=== PATIENT | female | born 1990 | race Caucasian/White ===

== ENCOUNTER 2022-04-20 14:50 | Outpatient (CLI) | payer BC ==
[2022-04-20 15:03] LABS: BASOPHILS % (AUTO) 0.3 %; EOSINOPHILS % (AUTO) 0.7 %; HCT - HEMATOCRIT 42.2 % (37.0-47.0); HGB - HEMOGLOBIN 13.7 g/dL (12.0-16.0); LYMPHOCYTES % (AUTO) 34.5 %; MEAN CORPUSCULAR HEMOGLOBIN 30.1 pg (27.0-31.0); MEAN CORPUSCULAR HGB CONC 32.5 g/dL (32.0-36.0); MEAN CORPUSCULAR VOLUME 92.7 fL (81.0-99.0); MEAN PLATELET VOLUME 11.1 fL (7.9-10.8); MONOCYTES # (AUTO) 0.4 10^3/uL (0.0-1.0); MONOCYTES % (AUTO) 6.8 %; NEUTROPHILS # (AUTO) 3.4 10^3/uL (1.5-6.6); NEUTROPHILS % (AUTO) 57.5 %; PLT - PLATELET COUNT 280 10^3/uL (130-450); RED BLOOD COUNT 4.55 10^6/uL (4.20-5.40); RED CELL DISTRIBUTION WIDTH 12.1 % (12.0-15.0); WHITE BLOOD COUNT 5.9 x10^3/uL (4.8-10.8)
== END 2022-04-20 14:51 | disposition home or self-care (01) ==
LOC: LAB 14:50
PROVIDERS: ATTEND Nurse Practitioner
DX: Z86.2 Personal history of diseases of the blood and blood-forming organs and certain disorders involving the immune mechanism (principal)
CPT/HCPCS: 36415; 82728; 85025

== ENCOUNTER 2022-08-21 14:11 | Outpatient (CLI) | payer BC ==
[2022-08-21 19:54] LABS: BASOPHILS % (AUTO) 0.3 %; EOSINOPHILS # (AUTO) 0.1 10^3/uL (0.0-0.7); EOSINOPHILS % (AUTO) 1.1 %; HCT - HEMATOCRIT 40.1 % (37.0-47.0); HGB - HEMOGLOBIN 12.8 g/dL (12.0-16.0); LYMPHOCYTES # (AUTO) 2.1 10^3/uL (1.5-3.5); LYMPHOCYTES % (AUTO) 31.7 %; MEAN CORPUSCULAR HEMOGLOBIN 30.3 pg (27.0-31.0); MEAN CORPUSCULAR HGB CONC 31.9 g/dL (32.0-36.0); MEAN PLATELET VOLUME 11.9 fL (7.9-10.8); MONOCYTES # (AUTO) 0.4 10^3/uL (0.0-1.0); MONOCYTES % (AUTO) 5.9 %; NEUTROPHILS % (AUTO) 60.7 %; PLT - PLATELET COUNT 255 10^3/uL (130-450); RED BLOOD COUNT 4.22 10^6/uL (4.20-5.40); RED CELL DISTRIBUTION WIDTH 13.1 % (12.0-15.0); WHITE BLOOD COUNT 6.6 x10^3/uL (4.8-10.8)
[2022-08-23 05:11] LABS: HCV AB Non Reactive (Non Reactive); HIV SCREEN 4TH GENERATION Non Reactive (Non Reactive)
[2022-08-23 06:10] LABS: HBsAG SCREEN Negative (Negative)
[2022-08-23 07:10] LABS: RPR Non Reactive (Non Reactive)
[2022-08-23 11:11] LABS: VARICELLA-ZOSTER AB IGG 737 index (Immune >165)
== END 2022-08-21 14:12 | disposition home or self-care (01) ==
LOC: LAB.S 14:11
PROVIDERS: ATTEND Nurse Practitioner Obstetrics & Gynecology
DX: Z36.89 Encounter for other specified antenatal screening (principal)
CPT/HCPCS: 36415; 85025; 86592; 86762; 86787; 86803; 86850; 86900; 86901; 87340; 87389

== ENCOUNTER 2022-08-25 08:31 | Emergency (ER) | payer BC ==
[2022-08-25 08:37] VITALS: BP 132/78
--- OUTSIDE RECORDS SUMMARY | 2022-08-25 08:46 | EXTERNAL MEDICAL SUMMARY RPT | Continuity of Care Document ---
:1990 Author Organization [facility] Address [address] [place] [address] Phone Care Team Providers Name Role Phone Unavailable Unavailable Unavailable Steven Flor Pa-C Unavailable Unavailable Allergies No information. Encounters No information. Functional Status No information. Immunizations No information. Medications date description facility 2022-08-25 00:00 metoclopramide hcl [facility] 2022-08-25 00:00 metoclopramide hcl [facility] 2022-08-25 00:00 metoclopramide hcl [facility] 2022-08-25 00:00 vit no.[id number] [facility] 2022-08-25 00:00 metoclopramide hcl [facility] 2022-08-25 00:00 vit no.[id number] [facility] 2022-08-25 00:00 vit no.[id number] [facility] Problems date description facility 2022-08-25 00:00 Pain in calf [facility] 2022-08-25 00:00 Tachycardia [facility] 2022-08-25 00:00 Pain in limb [facility] 2022-08-25 00:00 [facility] 2022-08-25 00:00 Pain in left lower leg [facility] 2022-08-25 00:00 Tachycardia, unspecified Walk-In [facility] 2022-08-25 00:00 state, incidental [facility] Procedures date description facility 2022-08-25 00:00 Visit Code Hold [facility] Results/Labs test date author facility value unit interpret ation Result panel 1 (unknown) (no date) (unknown) Walk-In (no value) (units (unk nown) Clinic [facility] Result panel 2 (unknown) (no date) (unknown) Walk[facility] (no value) (units ([facility] nown) Clinic [facility] Result panel 3 (unknown) (no date) (unknown) Walk[facility] (no value) (units ([facility] nown) Clinic [facility] Result panel 4 (unknown) (no date) (unknown) Walk-In (no value) (units ([facility] nown) Clinic [facility] Result panel 5 (unknown) (no date) (unknown) Walk[facility] (no value) (units ([facility] nown) Clinic [facility] Result panel 6 (unknown) (no date) (unknown) Walk[facility] (no value) (units ([facility] nown) Clinic [facility] Result panel 7 (unknown) (no date) (unknown) Walk[facility] (no value) (units ([facility] nown) [facility] Result panel 8 (unknown) (no date) (unknown) Walk[facility] (no value) (units ([facility] nown) Clinic [facility] Result panel 9 (unknown) (no date) (unknown) Walk[facility] (no value) (units ([facility] nown) [facility] Result panel 10 (unknown) (no date) (unknown) Walk[facility] (no value) (units ([facility] nown) Clinic [facility] Result panel 11 (unknown) (no date) (unknown) Walk[facility] (no value) (units ([facility] nown) Clinic [facility] Result panel 12 (unknown) (no date) (unknown) Walk-[facility] (no value) (units ([facility] nown) Clinic [facility] Result panel 13 (unknown) (no date) (unknown) Walk-[facility] (no value) (units ([facility] nown) Clinic [facility] Result panel 14 (unknown) (no date) (unknown) Walk-[facility] (no value) (units ([facility] nown) Clinic [facility] Result panel 15 (unknown) (no date) (unknown) Walk-In (no value) (units ([facility] nown) Clinic [facility] Result panel 16 (unknown) (no date) (unknown) Walk-[facility] (no value) (units ([facility] nown) Clinic [facility] Result panel 17 (unknown) (no date) (unknown) Walk-In (no value) (units ([facility] nown) Clinic [facility] Result panel 18 (unknown) (no date) (unknown) Walk-In (no value) (units ([facility] nown) Clinic [facility] Result panel 19 (unknown) (no date) (unknown) Walk-In (no value) (units ([facility] nown) Clinic [facility] Result panel 20 (unknown) (no date) (unknown) Walk-In (no value) (units ([facility] nown) Clinic [facility] Result panel 21 (unknown) (no date) (unknown) Walk-In (no value) (units ([facility] nown) Clinic [facility] Result panel 22 (unknown) (no date) (unknown) Walk-In (no value) (units ([facility] nown) Clinic [facility] Result panel 23 (unknown) (no date) (unknown) Walk-In (no value) (units (unk nown) Clinic [facility] unknown[facility] Social History date description facility 2022-08-25 00:00 Never smoker [facility] Vital Signs date measurement value units 2022-08-25 00:00 BMI 19.91 kg/m2 2022-08-25 00:00 BP_diastolic 74 mmHg 2022-08-25 00:00 BP_systolic 136 mmHg 2022-08-25 00:00 heart_rate 110 /min 2022-08-25 00:00 height_metric 160.02 cm 2022-08-25 00:00 height_standard 63 in 2022-08-25 00:00 respiration_rate 16 /min 2022-08-25 00:00 temperature_metric 36.11 C 2022-08-25 00:00 temperature_standard 97 F 2022-08-25 00:00 weight_metric 50.8 kg 2022-08-25 00:00 weight_standard 112 lb
--- NOTE | 2022-08-25 09:27 | ED Physician Documentation ---
PD HPI LOWER EXT INJURY - Stated complaint Stated Complaint: PREG/L CALF PX - Chief complaint Chief Complaint: Ext Problem - History obtained from History obtained from: Patient - Additional information Additional information: Patient is a 31-year-old female with no significant prior medical history presenting for evaluation of left calf pain that is been present since Sunday. She recently returned from [place] this past weekend. She is approximately 12 weeks . She denies any known injury. She denies history of PE or DVT but her sister has a history of a PE that appeared to have been provoked by oral contraceptives and her grandmother also had 1.Patient does not smoke. She denies recent surgeries. She was seen at the walk-in clinic and directed to the emergency department for evaluation. She denies chest pain or difficulty breathing. She is seeing one of the nurse midwives for her care and denies any complications in this . Review of Systems Constitutional: denies: Fever Cardiac: denies: Chest pain / pressure Respiratory: denies: Dyspnea GI: denies: Abdominal Pain : denies: Dysuria, Vaginal bleeding Musculoskeletal: reports: Extremity pain Neurologic: denies: Headache PD PAST MEDICAL HISTORY - Allergies Allergies/Adverse Reactions: Allergies Allergy/AdvReac Type Severity Reaction Status Date / Time amoxicillin Allergy Hives Verified 08/25/22 08:37 PD ED PE NORMAL - General General: Alert and oriented X 3, No acute distress, Well developed/nourished - HEENT HEENT: Atraumatic - Neck Neck: Supple, no meningeal sign - Cardiac Cardiac: RRR - Respiratory Respiratory: No respiratory distress, Clear bilaterally - Abdomen Abdomen: Soft, Non tender, Non distended - Derm Derm: Warm and dry - Extremities Extremities: No deformity, No tenderness to palpate, Normal ROM s pain, No edema, Other (Pedal pulses intact). No: No calf tenderness / cord (Mild tenderness to left calf) Results - Vitals Vitals: Vital Signs - 24 hr 08/25/22 08:34 Temperature 36.8 C Heart Rate 105 H Respiratory 20 Rate Blood Pressure 132/78 H O2 Saturation 98 Oxygen O2 Source Room air PD Medical Decision Making - ED course Complexity details: reviewed results, re-evaluated patient ED course: Patient is a 31-year-old presenting for evaluation of left calf pain in the setting of first trimester and recent overseas plane trip.Physical exam is unrevealing with no signs of swelling Or rash. She has full range of motion at all joints of the affected extremity and compartments are soft. She is neurovascularly intact. An ultrasound is negative for DVT.Could be related to muscle strain. Discussed continued supportive care.Patient denies symptoms elsewhere. She is not and heart tones Rechecked and normal. Patient denies chest pain or shortness of air or abdominal pain. Patient is counseled to continue with supportive care and is also advised on concerning symptoms to return for. Departure - Departure Disposition: 01 Home, Self Care Clinical Impression: Pain of left calf Condition: Stable Instructions: ED RICE Comments: Your ultrasound does not show a blood clot in your left leg.Your pain could be related to a muscle strain and I would recommend continuing with an anti- inflammatory such as acetaminophen, rest, ice Over the weekend. If you are pain worsens or you notice any new symptoms such as redness or swelling or difficulty breathing please return to the emergency department. Discharge Date/Time: 08/25/22 09:49
--- NOTE | 2022-08-25 09:30 | Ultrasound Report ---
PROCEDURE: Duplex Ext Veins Left INDICATIONS: L calf pain; ; recent travel TECHNIQUE: Real-time imaging, as well as color and pulse Doppler interrogation, were performed of the lower extr emity deep veins from the inguinal ligament to the popliteal fossa. COMPARISON: None. FINDINGS: The deep veins are normally compressible, and free of intraluminal thrombus. Color and pu lse Doppler demonstrate normal phasic intraluminal flow. There is normal augmentation response to di stal compression maneuver. IMPRESSION: Negative examination for DVT in the left leg. Reviewed by: Luis Reyes MD on 08/25/2022 9:29 AM PDT Approved by: Luis Reyes MD on 08/25/2022 9:29 AM PDT Station ID: [id number]
== END 2022-08-25 09:49 | disposition home or self-care (01) ==
LOC: ED 08:31
DX: O99.891 Other specified diseases and conditions complicating pregnancy (principal); M79.662 Pain in left lower leg
CPT/HCPCS: 99283; 99284

== ENCOUNTER 2022-10-23 15:14 | Outpatient (CLI) | payer BC ==
--- NOTE | 2022-10-23 17:09 | Ultrasound Report ---
PROCEDURE: OB Detailed Eval INDICATIONS: SUPERVISION OF OUTSIDE/PRIOR DATING DATA: Last menstrual period (LMP): 06/05/2022. LMP-based estimated date of delivery (CELIO): 03/12/2023. First dating scan (date and location): 07/28/2022. Estimated date of delivery (CELIO) from first dating scan: 03/13/2023. The below data below was generated using the sonographic CELIO of 03/13/2023 TECHNIQUE: Real-time scanning was performed of the fetus, with image documentation and biometric measurements. Endovaginal scanning: Not performed COMPARISON: None. FINDINGS: General: A single living intrauterine gestation is present. Presentation: Variable Placenta: Placental position is posterior, without previa. Amniotic fluid index: 14.0 cm, largest pocket is 5.6 cm, normal for gestational age. heart rate: 160 beats per minute. Maternal cervical canal: Closed and 4.4 cm long; normal length is 2.5 cm or more. biometrics: Biparietal diameter: 5.0 cm, 21 weeks 1 day Head circumference: 18.8 cm, 21 weeks 1 day Abdominal circumference: 15.9 cm, 21 weeks 0 days Femur length: 3.1 cm, 19 weeks 4 days Estimated gestational age from initial scan: 19 weeks 6 days. Composite gestational age from present scan: 20 weeks 5 days Estimated weight and percentile: 355 g, 79th percentile Measurement variability in biometric dating: +/- 10 days from 12-20 weeks gestation, +/- 2 weeks from 20-30 weeks gestation, +/- 3 weeks at 30 weeks gestation or later. Anatomic survey: Neuro: Ventricles are normal at less than 10 mm. Cisterna magna is normal at 3-11 mm. Cerebellum i s normal in size and morphology. Nuchal skin fold: Normal at less than 6 mm between 14 and 20 weeks gestational age. Face: Nose and lips, facial profile are normal. Spine: No evidence for spina bifida. Heart: 4-chambered heart is present. Ventricular outflow tracts are suboptimally seen secondary to f etal lie. Diaphragm: Diaphragm is intact. Stomach: Left-sided stomach is present. Kidneys: No hydronephrosis. Normal is less than 5 mm in 2nd trimester, less than 7 mm in 3rd trimester. Cord: 3 vessel cord has orthotopic insertion. Bladder: Normal in size. Extremities: All 4 extremities are visualized. IMPRESSION: 1. Single living intrauterine with symmetric and appropriate growth. 2. Suboptimal visualization of cardiac ventricular outflow tracts. Otherwise normal anatomy. Fo llow-up in one week is recommended for completion of anatomic survey. 3. Closed cervix and normal amniotic fluid volume. Reviewed by: Riddhi Rdz MD on 10/23/2022 5:07 PM PDT Approved by: Riddhi Rdz MD on 10/23/2022 5:07 PM PDT Station ID: [id number]
== END 2022-10-23 15:15 | disposition home or self-care (01) ==
LOC: DI 15:14
PROVIDERS: ATTEND Nurse Practitioner Obstetrics & Gynecology
DX: Z34.02 Encounter for supervision of normal first pregnancy, second trimester (principal); Z36.89 Encounter for other specified antenatal screening

== ENCOUNTER 2022-11-15 14:01 | Outpatient (CLI) | payer BC ==
--- NOTE | 2022-11-15 16:32 | Ultrasound Report ---
PROCEDURE: OB F/U or Repeat INDICATIONS: SUPERVISION OF OUTSIDE/PRIOR DATING DATA: Last menstrual period (LMP): 06/05/2022. LMP-based estimated date of delivery (CELIO): 03/12/2023. First dating scan (date and location): 07/28/2022. Estimated date of delivery (CELIO) from first dating scan: 03/13/2023. The below data below was generated using the ultrasound CELIO of 03/13/2023 TECHNIQUE: Real-time scanning was performed of the fetus, with image documentation and biometric measurements. Endovaginal scanning: Not performed COMPARISON: None. FINDINGS: General: A single living intrauterine gestation is present. Presentation: Cephalic Placenta: Placental position is posterior, without previa. Amniotic fluid index: 13 cm, 29th percentile for gestational age. heart rate: Not obtained. Maternal cervical canal: 3.7 cm long; normal length is 2.5 cm or more. biometrics: Estimated gestational age from initial scan: 23 weeks 1 day Composite gestational age from present scan: Not applicable Estimated weight and percentile: Not applicable Measurement variability in biometric dating: +/- 10 days from 12-20 weeks gestation, +/- 2 weeks from 20-30 weeks gestation, +/- 3 weeks at 30 weeks gestation or more. Other: Normal sonographic appearance of the heart and outflow tracts. The kidneys and urinary bladder appear within normal limits. IMPRESSION: Single living intrauterine at 23 weeks 1 day, CELIO of 03/13/2023. Normal sonographic appearance of the heart and outflow tracts. Reviewed by: Ash Hanks on 11/15/2022 4:30 PM PDT Approved by: Ash Hanks on 11/15/2022 4:30 PM PDT Station ID: [id number]
== END 2022-11-15 14:02 | disposition home or self-care (01) ==
LOC: DI 14:01
PROVIDERS: ATTEND Nurse Practitioner Obstetrics & Gynecology
DX: Z34.02 Encounter for supervision of normal first pregnancy, second trimester (principal); Z36.89 Encounter for other specified antenatal screening

== ENCOUNTER 2022-12-04 07:58 | Outpatient (CLI) | payer BC ==
[2022-12-04 14:39] LABS: BASOPHILS % (AUTO) 0.3 %; EOSINOPHILS % (AUTO) 0.4 %; HGB - HEMOGLOBIN 10.9 g/dL (12.0-16.0); LYMPHOCYTES # (AUTO) 1.5 10^3/uL (1.5-3.5); LYMPHOCYTES % (AUTO) 22.4 %; MEAN CORPUSCULAR HEMOGLOBIN 32.6 pg (27.0-31.0); MEAN CORPUSCULAR VOLUME 98.8 fL (81.0-99.0); MEAN PLATELET VOLUME 11.7 fL (7.9-10.8); MONOCYTES # (AUTO) 0.4 10^3/uL (0.0-1.0); MONOCYTES % (AUTO) 6.3 %; NEUTROPHILS # (AUTO) 4.7 10^3/uL (1.5-6.6); NEUTROPHILS % (AUTO) 70.2 %; PLT - PLATELET COUNT 227 10^3/uL (130-450); RED BLOOD COUNT 3.34 10^6/uL (4.20-5.40); RED CELL DISTRIBUTION WIDTH 13.3 % (12.0-15.0); WHITE BLOOD COUNT 6.7 x10^3/uL (4.8-10.8)
== END 2022-12-04 07:59 | disposition home or self-care (01) ==
LOC: LAB.S 07:58
PROVIDERS: ATTEND Nurse Practitioner Obstetrics & Gynecology
DX: Z36.9 Encounter for antenatal screening, unspecified (principal); Z67.91 Unspecified blood type, Rh negative
CPT/HCPCS: 36415; 82950; 85025; 85027; 86850

== ENCOUNTER 2023-03-05 00:44 | Inpatient (IN) | payer BC ==
[2023-03-05 01:20] LABS: RUPTURE OF MEMBRANES PLUS POSITIVE (NEGATIVE)
[2023-03-05] MEDS ORDERED: hydrALAZINE INJ 20 MG/ML VIAL IVP PRN ×2 (01:21)
[2023-03-05] MEDS ORDERED: miSOPROStoL 200 MCG TABLET BC PRN (01:21)
[2023-03-05] MEDS ORDERED: LACTATED RINGERS 1,000 ML IV PRN (01:21)
[2023-03-05] MEDS ORDERED: LABETALOL 20 MG/4 ML SYRINGE IVP PRN ×3 (01:21)
[2023-03-05] MEDS ORDERED: OXYTOCIN 10 UNIT/ML VIAL IM PRN (01:21)
[2023-03-05] MEDS ORDERED: TRANEXAMIC ACID IN NACL 1,000 MG/100 ML BAG IV PRN (01:21)
[2023-03-05] MEDS ORDERED: OXYTOCIN/SODIUM CHLORIDE 500 ML IV PRN (01:21)
[2023-03-05] MEDS ORDERED: miSOPROStoL 200 MCG TABLET PR PRN (01:21)
[2023-03-05] MEDS ORDERED: METHYLERGONOVINE 0.2 MG/ML VIAL IM PRN (01:21)
[2023-03-05] MEDS ORDERED: CARBOPROST TROMETHAMINE 250 MCG/ML AMP IM PRN (01:21)
[2023-03-05] MEDS ORDERED: TERBUTALINE 1 MG/ML VIAL SUBQ PRN (01:21)
[2023-03-05] MEDS ORDERED: ONDANSETRON 4 MG/2 ML VIAL IVP PRN (01:21)
[2023-03-05] MEDS ORDERED: SODIUM CHLORIDE FLUSH 0.9% 10 ML SYRINGE IVP PRN (01:21)
[2023-03-05] MEDS ORDERED: lidocaine 1% 20 ML MDV ID PRN (01:21)
[2023-03-05] MEDS ORDERED: NIFEdipine 10 MG CAPSULE PO PRN (01:21)
[2023-03-05] MEDS ORDERED: fentaNYL 100 MCG/2 ML VIAL IVP PRN (01:21)
[2023-03-05 01:38] LABS: BASOPHILS % (AUTO) 0.2 %; EOSINOPHILS % (AUTO) 0.3 %; HCT - HEMATOCRIT 35.8 % (37.0-47.0); LYMPHOCYTES # (AUTO) 2.3 10^3/uL (1.5-3.5); LYMPHOCYTES % (AUTO) 26.7 %; MEAN CORPUSCULAR HEMOGLOBIN 32.4 pg (27.0-31.0); MEAN CORPUSCULAR HGB CONC 33.5 g/dL (32.0-36.0); MEAN CORPUSCULAR VOLUME 96.8 fL (81.0-99.0); MEAN PLATELET VOLUME 12.5 fL (7.9-10.8); MONOCYTES # (AUTO) 0.6 10^3/uL (0.0-1.0); MONOCYTES % (AUTO) 6.7 %; NEUTROPHILS # (AUTO) 5.7 10^3/uL (1.5-6.6); NEUTROPHILS % (AUTO) 65.6 %; PLT - PLATELET COUNT 148 10^3/uL (130-450); RED CELL DISTRIBUTION WIDTH 13.5 % (12.0-15.0); WHITE BLOOD COUNT 8.7 x10^3/uL (4.8-10.8)
[2023-03-05] MEDS ORDERED: LACTATED RINGERS 1,000 ML IV SCH (02:00)
--- OUTSIDE RECORDS SUMMARY | 2023-03-05 03:26 | EXTERNAL MEDICAL SUMMARY RPT | Continuity of Care Document ---
Author Name Unknown Address [address] [place] [address] Phone Organization [facility] Address [address] [place] [address] Phone Care Team Providers Care Customer Operations Intern Name Role Phone Unavailable Unavailable Unavailable Brandon, Provider Unavailable Unavailable Medications date description facility 2022-12-07 00:00 metoclopramide hcl [facility] [place] 2023-03-05 00:00 metoclopramide hcl [facility] [place] 2022-12-07 00:00 metoclopramide hcl [facility] [place] 2023-03-05 00:00 metoclopramide hcl [facility] [place] 2022-12-07 00:00 metoclopramide hcl [facility] [place] 2023-03-05 00:00 metoclopramide hcl [facility] [place] 2022-12-07 00:00 vit no.[id number] [facility] [place] 2023-03-05 00:00 vit no.[id number] [facility] [place] 2022-12-07 00:00 metoclopramide hcl [facility] [place] 2023-03-05 00:00 metoclopramide hcl [facility] [place] 2022-12-07 00:00 vit no.[id number] [facility] [place] 2023-03-05 00:00 vit no.[id number] [facility] [place] 2022-12-07 00:00 vit no.[id number] [facility] [place] 2023-03-05 00:00 vit no.[id number] [facility] Results/Labs test date facility value unit notes Social History date description facility
[2023-03-05] MEDS ORDERED: WITCH HAZEL/GLYCERIN 1 PAD TOP PRN (04:18)
[2023-03-05] MEDS ORDERED: HYDROCORTISONE 1% CREAM 28 GM TUBE PR PRN (04:18)
--- NOTE | 2023-03-05 04:37 | DELIVERY NOTE ---
Delivery Note - Labor Labor: positive: Spontaneous - Delivery Method Delivery Method: positive: Spontaneous vaginal delivery - Presentation Presentation: positive: Vertex, VIDYA - right occiput anterior - Nuchal Cord Nuchal Cord: positive: None - Amniotic Fluid Description Amniotic Fluid Description: positive: Clear - Episiotomy Type Episiotomy Type: positive: None - Laceration Laceration: positive: 1st degree, Perineal, Periurethral - Suture Suture Type: positive: Vicryl Suture Size: positive: 3-0, 4-0 - Delivery Outcome Delivery Outcome: positive: Livebirth - Dexter: positive: Placed in direct skin contact with mother, Bulb syringe, Stimulated, Warmed, [place] used Dexter sex: positive: Male - Cord Cord: positive: 3 vessels - Placenta Placenta: positive: Intact, Spontaneous - Estimated Blood Loss Estimated Blood Loss (in cc): 250 - Post Delivery Events Post Delivery Events: positive: No post delivery events - Delivery Comments (Free Text/Narrative) Delivery Comments (Free Text/Narrative): Labor: This 32yo @ 39.0wks gestation by LMP c/w 7.3wk U/S presents to [facility] with c/o contractions and vaginal leakage of clear fluid. Upon arrival she was noted to be 4/100/0 and vertex. ROM+ returned positive with suspected SROM at approximately 2130 and clear fluid. FHR pattern demonstrated category I pattern throughout labor. Pt progressed to c/c/+1 at 0254. : Normal SVB of viable male on 03/05/2023 @ 0323. No nuchal cord. The was placed on maternal abdomen, stimulated, dried, and placed skin to skin. Apgars were 8/9 at 1 and 5 minutes respectively. IV dislodged during second stage and IM pitocin was administered secondarily. The umbilical cord was allowed to stop pulsating at which time it was doubly clamped by CNM and cut by FOB. Cord blood was obtained. 3VC. Fundal massage and gentle cord traction applied for active management of the third stage. Placenta delivered spontaneously and intact at 0331. EBL 250mL. Fourth stage: Uterine fundus firm and there is no excessive bleeding. The perineum, vagina, and cervix were inspected and found to have a 1st degree perineal laceration which was repaired using a 3-[address]-1 needle, in standard fashion and under sterile conditions. In addition there was found to be a minor 1st degree left periurethral laceration which was repaired using a 4-0 vicryl on an SH needle in standard fashion and under sterile conditions. Vaginal examination following repair was done. Tissues well approximated. initiated. Family bonding well. Both mother and baby were left in stable condition.
--- NOTE | 2023-03-05 04:43 | HISTORY & PHYSICAL EXAMINATION ---
Admit History - Visit Reason Visit Reason: Contractions, Membranes rupture - : 2 Parity: 1 Premature: 0 Ectopic: 0 : 0 Care: positive: [facility] Risk/History: positive: None Complications This : positive: None Smoking Status: Never smoker - Mother's Labs Mother's Blood Type: positive: O Mother's RH: positive: Negative GBS: positive: Group B Step Negative Rubella Status: positive: Immune - HPI Current EDU 03/12/23 Gestation 39 Weeks and 0 Days 2 Vital Signs Temperature 37.0 C 03/05/23 00:52 Heart Rate 119 H 03/05/23 00:52 Respiratory Rate 20 03/05/23 00:52 Temperature 36.7 C 03/05/23 01:29 Heart Rate 113 H 03/05/23 01:29 Respiratory Rate 18 03/05/23 01:29 Blood Pressure 127/74 03/05/23 01:29 O2 Saturation If not protocol: Oxygen Flow, liters/minute - NST Procedure FHR baseline 130s, moderate variability, + accels, no decels Contractions palpate strong every 2-4 minutes with soft resting tone Meds/Allgy - Allergies Allergies/Adverse Reactions: Allergies Allergy/AdvReac Type Severity Reaction Status Date / Time amoxicillin Allergy Hives Verified 08/25/22 08:37 Review of Systems - Constitutional Constitutional: denies: Fatigue, Fever, Chills, Malaise - Eyes Eyes: denies: Blurred vision, Spots in vision, Dipolpia - Cardiovascular Cariovascular: denies: Irregular heart rate, Palpitations, Chest pain, Edema - Respiratory Respiratory: denies: Cough, SOB at rest - Gastrointestinal Gastrointestinal: denies: Constipation, Diarrhea, Nausea, Vomiting - Genitourinary Genitourinary: denies: Dysuria - Integumentary Integumentary: denies: Rash, Pruritis - Neurological Neurological: denies: Headache - Psychiatric Psychiatric: denies: Depression, Anxiety - Hematologic/Lymphatic Hematologic/Lymphatic: denies: Anemia Physical - Abdominal Exam Vital Signs: Temp Pulse Resp BP Pulse Ox O2 Flow Rate 36.7 C 113 H 18 127/74 03/05/23 01:29 03/05/23 01:29 03/05/23 01:29 03/05/23 01:29 Contraction Frequency (min/apart): 2-4 Contraction Intensity: positive: Strong Uterine Resting Tone: positive: Soft - Monitoring Heart Rate Baseline: 130 - Presentation Presentation: positive: Vertex - Vaginal Exam Membranes: positive: Membranes ruptured Dilation (in cm): 4 Effacement (%): 100 Station: positive: 0 Cervical Position: positive: Midposition - Speculum Exam Speculum Exam Performed: positive: No Findings: positive: Other Plan for Labor - Plan For Labor I expect patient to be DC'd or transferred within 96 hours.: Yes Plan for Labor: HPI: Anjali is a 32yo @ 39.0wks gestation by LMP cw/ 7.3wk U/s who presents to [facility] with c/o contractions that have increased in frequency and intensity since approximately 2029 this evening. She reports SROM on 03/04/2023 at 2130 which was noted to be a moderate amount of clear fluid. Upon arrival her cervix was noted to be 4/100/0 and vertex with ROM+ returning positive and continued leakage of clear fluid. She was admitted to [facility] for expectant management. She has been a patient of [facility] for the duration of her which has remained uncomplicated with the exception of mild anemia which was treated with PO iron supplement twice daily. She has received consistent and adequate care. She is supported by her Andrey and her ariel Aguilar. Dating criteria: LMP: 06/05/2022 Initial U/S @ 7.3wks c/w LMP dating Serial exams- agree maintenance planner History: Term NSVB x 1. SAB x 0. Last pap 12/2020 WNL, HPV neg. Denies history of gonorrhea, chlamydia, genital herpes, oral herpes or any other STI. Sexual partner does NOT have HSV (oral or genital). Medical Hx: migraines, anemia Surgical Hx: none Social Hx:Monogamous with male partner. Stopped drinking alcohol due to . Denies current use of tobacco, marijuana or other recreational drugs. Reports that she is safe in current relationship. Family Hx: Trisomy 18-sister's baby. Denies other known family hx of chromosomal or genetic abnormalities. Thyroid disorder - father; HTN- father; Diabetes - father, PGM Allergies: Amoxicillin Medications: PNV, FeSO4 PO bid course: O negative, antibody negative Rubella immune, varicella immune RPR non-reactive, HIV non-reactive Hep C neg, Hep B neg Initial U/S @ 7.3wks c/w LMP dating Genetic screening - negative FAS WNL with the exception of suboptimal visualization of cardiac ventricular outflow tracts. Posterior placenta, no previa. CHYNA WNL. 3VC. Size c/w dating (EFW 79%tile). Completion FAS WNL. Glucola 96 Antibody negative @ 28wks Rhogam administered 12/19/2022 Tdap 01/24/2023 COVID-19 x 4 (most recent booster @ 36wks gestation) Influenza 3rd trimester GBS negative Physical exam: Normocephalic, atraumatic Heart RRR w/o M/G/R Lungs CTAB Abdomen gravid, soft, nontender EFW 3300g FHR baseline 130s, moderate variability, + accels, no decels Contractions palpate strong every 2-4 minutes with soft resting tone SVE 4/100/0 and vertex. ROM+ positive Bilateral LE's no edema Mood is good Assessment: 32yo @ 39.0wks gestation by LMP c/w 7.3wk U/S Active labor FHR Category I GBS neg Rh negative Plan: Admit to [facility] for expectant management. Continuous monitoring. Jacuzzi PRN. Nitrous oxide PRN. Epidural per maternal request. Anticipate .
--- NOTE | 2023-03-05 04:55 | PROCEDURE REPORT ---
- HPI Current EDU 03/12/23 Gestation 39 Weeks and 0 Days 2 Vital Signs Temperature 37.0 C 03/05/23 00:52 Heart Rate 119 H 03/05/23 00:52 Respiratory Rate 20 03/05/23 00:52 Temperature 36.7 C 03/05/23 01:29 Heart Rate 113 H 03/05/23 01:29 Respiratory Rate 18 03/05/23 01:29 Blood Pressure 127/74 03/05/23 01:29 O2 Saturation If not protocol: Oxygen Flow, liters/minute - NST Procedure FHR Baseline 130s, moderate variability, + accels, no decels Contractions palpate strong every 2-4 minutes with soft resting tone
[2023-03-05] MEDS: ACETAMINOPHEN 500 MG TABLET PO SCH ×3 (06:08→21:47)
[2023-03-05] MEDS: IBUPROFEN 800 MG TABLET PO SCH ×3 (06:09→17:59)
[2023-03-05] MEDS: DOCUSATE SODIUM 100 MG CAPSULE PO SCH ×2 (08:46→21:47)
[2023-03-05] MEDS ORDERED: RHO(D) IMMUNE GLOBULIN 300 MCG SYRINGE IM ONE (12:48)
[2023-03-06] MEDS: IBUPROFEN 800 MG TABLET PO SCH ×2 (00:01→05:57)
[2023-03-06] MEDS: ACETAMINOPHEN 500 MG TABLET PO SCH (05:57)
[2023-03-06] MEDS: DOCUSATE SODIUM 100 MG CAPSULE PO SCH (08:29)
--- NOTE | 2023-03-06 09:22 | Discharge Plan ---
Discharge Plan Problem Reviewed?: Yes Disposition: Home, Self Care Condition: Good Diet: Regular Activity Restrictions: No Restrictions Shower Restrictions: No Driving Restrictions: No Weight Bearing: Full Weight Instruction Topics: Vaginal After No Smoking: If you smoke, Please STOP! Call for help. Follow-up with: Joy Worthington CNM, ARNP [Provider Admit Priv/Credential] - 1 Week (Mar 13 at 11:30am)
--- NOTE | 2023-03-06 09:27 | DISCHARGE SUMMARY ---
Discharge Summary Condition at Discharge: Good Discharge Disposition: 01 Home, Self Care - HOSPITAL COURSE Hospital Course: Date of Admission: 03/04/2023 Date of Discharge: 03/06/2023 DIagnosis on Admission: 1. 32yo @ 38.6wks gestation by LMP c/w first trimester ultrasound 2. Active labor 3. FHR Category I 4. GBS positive 5. Rh negative DIagnosis on Discharge: 1. 32yo PPD#1 s/p TSVB viable male infant 2. Rh negative - s/p Rhogam injection 3. 4. Normal recovery Brief History: She is a patient of [facility] who presented on 03/04/2023 with c/o contraction and vaginal leakage of clear fluid. She was found to contract every 2-3 minutes and cervix was 4/100/0 and vertex with ROM+ returning positive. She was admitted to [facility] and expectantly managed. She progressed to spontaneously deliver a viable male infant on 03/05/2023 @ 0323. Apgars were 8/9 at 1 and 5 minutes respectively. EBL 250mL. 1st degree perineal laceration was repaired in standard fashion and under sterile conditions. She has been doing well in her course. She is ambulating and tolerating a regular diet. She is urinating without difficulty and her lochia is normal. Her pain is well controlled with oral medications. She will be discharged home today on day #1 with instructions to continue taking her vitamin while and to continue taking ibuprofen and tylenol over the counter as needed for pain management. She intends to follow up with myself at [facility] in 1 week or sooner if needed. She has been given precautions to call if she has any worsening fevers, chills, abdominal pain, increased vaginal bleeding or foul smelling vaginal lochia. Physical exam: Normocephalic, atraumatic. Heart RRR w/o M/G/R. Lungs CTAB. Abdomen soft and nontender. FUndus firm at U. Perineum intact, repair with mild edema. Light lochia rubra. Bilateral LE's no edema. Mood is good. - ALLERGIES Allergies/Adverse Reactions: Allergies Allergy/AdvReac Type Severity Reaction Status Date / Time amoxicillin Allergy Hives Verified 08/25/22 08:37 - LABS Result Diagrams: 03/05/23 01:15
[2023-03-06 09:56] VITALS: BP 118/61; O2SAT 98
--- NOTE | 2023-03-06 10:20 | Labor Flowsheet ---
Labor Flowsheet Datetime Report Generated by CPN: 03/06/2023 10:20 Datetime: 03/06/2023 09:44 VITAL SIGNS NBP Sys/Quiana/Mean (mmHg): 118 : 71 : 82 Pulse: 89 LaborFlag: Labor Datetime: 03/05/2023 03:21 ASSESSMENT A FHR Baseline Rate : 140 Datetime: 03/05/2023 03:18 UTERINE ACTIVITY Monitor Mode: External Frequency (min): 2 Quality: Strong Duration (sec): 60 Resting Tone (Palpate): Relaxed FHR Baseline Changes: No Baseline Change Variability: Moderate 6-25 bpm Decelerations: Variable COMMUNICATION Communication: RN at Bedside; Provider at Bedside Communication Comments: pushing effectively Datetime: 03/05/2023 03:03 Comments: beginning to push Datetime: 03/05/2023 02:54 VAGINAL EXAM Dilatation (cm): 10.0 Effacement (%): 100 Station: 1 Exam by: A Ander Datetime: 03/05/2023 02:53 Pattern: Normal: <= 5 Contractions in 10 Minutes Accelerations: 15X15 Category: Category I Datetime: 03/05/2023 02:49 Temperature (C): 36.7 Datetime: 03/05/2023 02:43 Patient Position/Activity: Right Lateral; Semi-Fowlers Datetime: 03/05/2023 02:38 Pain Presence: Intermittent Pain Type: Cramping Pain Relief Measures: Comfort Measures Pain Coping: Breathing Through Contractions Pain Assessment Comments: Nitrous Oxide started with instruc Comfort Measures: Breathing/Relaxation; Coaching; Back Rub Given; Family Support; Product Analyst Support Datetime: 03/05/2023 02:34 PAIN Pain Scale: 7 Patient Care Comments: in tub Datetime: 03/05/2023 01:47 Respirations: 18 Membrane Status: Ruptured Amniotic Fluid Color: Clear Amniotic Fluid Amount: Scant Amniotic Fluid Odor: Normal MATERNAL ASSESSMENT Level of Consciousness: Alert DTR's/Clonus: DTRs 2+ Headache: Denies Breath Sounds, Left: Clear and Equal Breath Sounds, Right: Clear and Equal Nausea/Vomiting: Denies RUQ Epigastric Pain: Denies Datetime: 03/05/2023 01:15 Notification Reason: Status Update; Labor Status; Membrane Status; Uterine Activity Datetime: 03/05/2023 01:14 Stage of : Labor PATIENT CARE IV/Blood Work: IV Started; Labs Drawn with IV Start Hygiene: Deana Care; Underpad Changed I/O Interventions: Clear Liquids Given Datetime: 03/05/2023 01:04 TEACHING Instructional Method: Verbal Plan of Care: Plan of Care Discussed; Labor Unit Routine: [place] to Room; Call Heard; Bed Labor/Induction: Labor Stages Datetime: 03/05/2023 01:01 Vaginal Bleeding: None Cervix, Consistency: Soft Cervix, Position: Midposition Lie 'A': Longitudinal Datetime: 03/05/2023 00:52 Membranes Ruptured Date/Time: 03/04/2023 22:00 Membranes Rupture Method: Spontaneous
== END 2023-03-06 10:19 | disposition home or self-care (01) | DRG 807 ==
LOC: WFO 00:44 → FBP 00:47 → WFO 01:14 → UNDOADMIN 01:15 → FBP 01:15
PROVIDERS: ADMIT Nurse Practitioner Obstetrics & Gynecology; ATTEND Nurse Practitioner Obstetrics & Gynecology
PROC: 0HQ9XZZ Repair Perineum Skin, External Approach (ICD-10-PCS; principal; 2023-03-05)
PROC: 10E0XZZ Delivery of Products of Conception, External Approach (ICD-10-PCS; 2023-03-05)
PROC: 0UQMXZZ Repair Vulva, External Approach (ICD-10-PCS; 2023-03-05)
DX: O26.893 Other specified pregnancy related conditions, third trimester (principal); Z37.0 Single live birth; Z3A.38 38 weeks gestation of pregnancy; O70.0 First degree perineal laceration during delivery; Z67.41 Type O blood, Rh negative; O71.82 Other specified trauma to perineum and vulva
CPT/HCPCS: 36415; 59409; 83033; 84112; 84443; 85025; 86850; 86870; 86880; 86900; 86901; A9270; J7120; 99215

== ENCOUNTER 2023-05-31 09:08 | Outpatient (CLI) | payer BC ==
[2023-05-31 14:48] LABS: HCT - HEMATOCRIT 42.3 % (37.0-47.0); HGB - HEMOGLOBIN 13.4 g/dL (12.0-16.0); MEAN CORPUSCULAR HEMOGLOBIN 30.7 pg (27.0-31.0); MEAN CORPUSCULAR HGB CONC 31.7 g/dL (32.0-36.0); RED BLOOD COUNT 4.36 10^6/uL (4.20-5.40); RED CELL DISTRIBUTION WIDTH 11.9 % (12.0-15.0); WHITE BLOOD COUNT 4.7 x10^3/uL (4.8-10.8)
== END 2023-05-31 09:09 | disposition home or self-care (01) ==
LOC: LAB.S 09:08
PROVIDERS: ATTEND Nurse Practitioner Obstetrics & Gynecology
DX: R53.83 Other fatigue (principal)
CPT/HCPCS: 36415; 82306; 82728; 85027